=== PATIENT | female | born 1970 | race Caucasian/White ===

== ENCOUNTER 2017-03-09 15:17 | Emergency (ER) | payer OTHER ==
--- NOTE | 2017-03-09 15:43 | RADIOLOGY REPORT ---
HISTORY: Follow-up portions COMPARISON: None. FINDINGS: 2 views of the right hip(s) and pelvis obtained. Frontal view of the pelvis shows normal alignment to the sacroiliac joints and pubic symphysis. No evidence for fracture. Mild joint space narrowing of b oth hips is evident. Focused imaging of the right hip shows no fracture or dislocation. Soft tissues are normal. IMPRESSION: No acute findings in the pelvis or right hip. Final Electronic Signature: This report was electronically signed by Calos Nascimento MD on 03/09/2017 3 :41 PM. yang /
[2017-03-09] MEDS ORDERED: KETOROLAC TROMETHAMINE 30 MG/ML VIAL ONE (15:58)
[2017-03-09] MEDS ORDERED: ONDANSETRON HCL 4 MG/2 ML VIAL ONE (15:58)
--- NOTE | 2017-03-09 16:33 | ER NURSING DOCUMENTATION ---
Nurse's Notes [facility] Name:Mesha Easley Age:47 yrs Sex:Female :1970 Arrival Date:03/09/2017 Time:15:17 BedTrauma-B Private MD: Diagnosis:Hip Contusion Presentation: 03/09 15:26 Presenting complaint: Patient states: pt slipped of a horse and landed on her right st side. pt was helmeted. bystanders stated she had a short LOC. pt does not remember the event. pt complains of right hip. Transition of care: patient was not received from another setting of care. 15:26 Acuity: CO[facility] 3 st 15:26 Method Of Arrival: EMS: 420 st Triage Assessment: 15:32 General: Appears uncomfortable, Behavior is cooperative. Pain: Complains of pain in st right hip Pain currently is 4 out of 10 on a pain scale. Cardiovascular: No deficits noted. Respiratory: No deficits noted. GI: No deficits noted. Musculoskeletal: pt does not what to move the right leg. Historical: - Allergies: Keflex; - Home Meds: 1. Zyrtec Oral 2. nadolol oral 3. Flonase Nasal - PMHx: MIGRAINES; MS; - PSHx: Tonsillectomy; - Tetanus: unknown. - Ebola Screening: : Patient denies exposure to infectious person. Patient denies travel to an Ebola-affected area in the 21 days before illness onset. . - Immunization history: Pneumococcal vaccine status is unknown. - Social history: Smoking status: Patient states was never smoker of tobacco. Patient uses alcohol occasionally. Patient/guardian denies using marijuana. Screenin:34 Infectious Disease Risk None. Abuse screen: Denies threats or abuse. Denies injuries st from another. pt feels safe at home. Nutritional screening: No deficits noted. Assessment: 15:50 General: pt was walked across the room. pt is stiff and sore but is able to walk. pt st got lightheaded and vomited after words. . 15:53 General: pt sitting in chair. . st 16:10 General: pt resting quietly. pt states she is stiff and uncomfortable but the nausea st and pain is better. . Vital Signs: 15:33 BP 162 / 81; Pulse 68; Temp 98.5; Pulse Ox 86% on R/A; Pain 4/10; st ED Course: 15:18 Patient arrived in ED. amdeven 15:23 Kelvin Saunders MD is Attending Physician. tl1 15:26 Mckayla Mckeon RN is Primary Nurse. st 15:[address] 15:34 Valuables Remains with patient Patient has correct armband on for positive st identification. Placed in gown. 15:36 HIP;W/PEL 2-[place] [id number] In Process Unspecified. EDMS 16:11 Warm blanket given. Diet: Patient given juice. st Administered Medications: 15:49 Drug: Toradol 30 mg; Route: IVP; Site: left hand; st 16:10 Follow up: Response: Pain is decreased st 15:49 Drug: Zofran 4 mg; Route: IVP; Infused Over: 2 mins; Site: left hand; st 16:11 Follow up: Response: Nausea is decreased st 15:49 Drug: NS 0.9% 1000 ml; Route: IV; Rate: bolus; Site: left hand; st 16:32 Follow up: IV Status: Completed infusion; IV Intake: 1000ml st Intake: 16:32 IV: 1000ml; Total: 1000ml. st Outcome: 16:17 Discharge ordered by . tl1 16:31 Discharged to home ambulatory. st 16:31 Condition: improved 16:31 Discharge instructions given to patient, Instructed on discharge instructions, follow up and referral plans. 16:32 [address] ED[address] 0714 14:15 Discharge F/U Call: Unable to reach: no answer st Signatures: Dispatcher [employer] Mckayla Ro RN RN Mika Carroll, Reg Reg Kelvin Nuñez MD MD tl1
--- NOTE | 2017-03-09 16:33 | ER PHYSICIAN DOCUMENTATION ---
Physician Documentation [facility] Name:Mesha Easley Age:47 yrs Sex:Female :1970 Arrival Date:03/09/2017 Time:15:17 BedTrauma-B Private MD: Kelvin Benítez Disposition: 03/10 20:18 Chart complete. tl1 Disposition: 03/09/17 16:17 Discharged to Home/Self Care. Impression: Hip Contusion. - Condition is Good. - Discharge Instructions: HIP CONTUSION. - Medical Reconciliation form form. - Follow up: Private Physician; When: 4- 6 days; Reason: Recheck today's complaints. - Problem is new. - Symptoms have improved. HPI: 03/09 15:23 This 47 yrs old Female presents to ER with complaints of Hip Injury - RIGHT. tl1 15:25 She fell off a horse and landed on her right side. She was BIB ambulance. Her only tl1 complaint is right flank, hip and proximal lateral thigh pain. She did not hit her head. No LOC. Denies neck, chest, back, or other extremity pain.. Historical: - Allergies: Keflex; - Home Meds: 1. Zyrtec Oral 2. nadolol oral 3. Flonase Nasal - PMHx: MIGRAINES; MS; - PSHx: Tonsillectomy; - Tetanus: unknown. - Ebola Screening: : Patient denies exposure to infectious person. Patient denies travel to an Ebola-affected area in the 21 days before illness onset. . - Immunization history: Pneumococcal vaccine status is unknown. - Social history: Smoking status: Patient states was never smoker of tobacco. Patient uses alcohol occasionally. Patient/guardian denies using marijuana. ROS: 15:25 MS/extremity: Positive for pain, swelling, tenderness, of the right hip. tl1 15:25 All other systems are negative. Exam: 15:25 Constitutional: This is a well developed, well nourished patient who is awake, alert, tl1 and in no acute distress. Head/Face: Normocephalic, atraumatic. Eyes: Pupils equal round and reactive to light, extra-ocular motions intact. Lids and lashes normal. Conjunctiva and sclera are non-icteric and not injected. Cornea within normal limits. Periorbital areas with no swelling, redness, or edema. ENT: Nares patent. No nasal discharge, no septal abnormalities noted. Tympanic membranes are normal and external auditory canals are clear. Oropharynx with no redness, swelling, or masses, exudates, or evidence of obstruction, uvula midline. Mucous membranes moist. Neck: Trachea midline, no thyromegaly or masses palpated, and no cervical lymphadenopathy. Supple, full range of motion without nuchal rigidity, or vertebral point tenderness. No Meningismus. Chest/axilla: Normal chest wall appearance and motion. Nontender with no deformity. No lesions are appreciated. Cardiovascular: Regular rate and rhythm with a normal S1 and S2. No gallops, murmurs, or rubs. Normal PMI, no JVD. No pulse deficits. Respiratory: Lungs have equal breath sounds bilaterally, clear to auscultation and percussion. No rales, rhonchi or wheezes noted. No increased work of breathing, no retractions or nasal flaring. Abdomen/GI: Soft, non-tender, with normal bowel sounds. No distension or tympany. No guarding or rebound. No evidence of tenderness throughout. 15:25 Back: No spinal tenderness. No costovertebral tenderness. Full range of motion. tl1 15:25 Musculoskeletal/extremity: Extremities: grossly normal except: Right lower flank, iliac crest, hip and lateral proximal thigh. there are subtle abrasions and diffuse TTP, w/o any apparent bruising (yet) or deformity., ROM: intact in all extremities. 15:25 Neuro: Orientation: is normal, Mentation: is normal, Memory: is normal, Cranial nerves: grossly normal, Motor: is normal, Gait: is steady, at a normal pace, with a slight limp favoring her right leg, appropriate for age. Vital Signs: 15:33 BP 162 / 81; Pulse 68; Temp 98.5; Pulse Ox 86% on R/A; Pain 4/10; st MDM: 15:23 Patient medically screened. tl1 16:00 Data reviewed: vital signs, nurses notes, radiologic studies, plain films, and as a tl1 result, I will discharge patient. Counseling: I had a detailed discussion with the patient and/or guardian regarding: the historical points, exam findings, and any diagnostic results supporting the discharge/admit diagnosis, radiology results, the need for outpatient follow up, to return to the emergency department if symptoms worsen or persist or if there are any questions or concerns that arise at home. Medication response: The patient's symptoms have improved. 03/09 15:36 Order name: HIP;W/PEL 2-[address] [place] [id number]; Complete Time: 20:19 EDMS 03/10 20:19 Interpretation: NAD. See radiologist report. tl1 Dispensed Medications: 15:49 Drug: Toradol 30 mg; Route: IVP; Site: left hand; st 16:10 Follow up: Response: Pain is decreased st 15:49 Drug: Zofran 4 mg; Route: IVP; Infused Over: 2 mins; Site: left hand; st 16:11 Follow up: Response: Nausea is decreased st 15:49 Drug: NS 0.9% 1000 ml; Route: IV; Rate: bolus; Site: left hand; st 16:32 Follow up: IV Status: Completed infusion; IV Intake: 1000ml st Signatures: Mckayla Mckeon RN RN st Campbell, Sandy, RN RN la1 Kelvin Saunders MD MD tl1
== END 2017-03-09 16:33 | disposition home or self-care (01) ==
LOC: ER 15:17
DX: S70.01XA Contusion of right hip, initial encounter (principal); V80.010A Animal-rider injured by fall from or being thrown from horse in noncollision accident, initial encounter; Y92.838 Other recreation area as the place of occurrence of the external cause; Y93.52 Activity, horseback riding; G35 Multiple sclerosis; Z79.899 Other long term (current) drug therapy
CPT/HCPCS: 96361; 96374; 96375; 99283; A0425; A0429; J1885; J2405